=== PATIENT | male | born 1990 | race Asian ===

== ENCOUNTER 2021-10-17 15:11 | Emergency (ER) | payer SELFPAY ==
[~2021-10-17] VITALS: Ht 177.8 cm; Wt 99.8 kg
--- NOTE | 2021-10-17 15:46 | NUR ---
BIBS FOR C/O SORE THROAT, BILAT EAR ACHE AND HEADACHE X 3-4 DAYS. [employer]. IN ROOM AIR AND DENIES SOB. RESPIRATION REGULAR AND UNLABORED. WILL CONTINUE TO MONITOR THE PATIENT.
--- NOTE | 2021-10-17 16:43 | NUR ---
COVID ANTIGEN, INFLUENZA AND STREP THROAT SWABS DONE AND SENT TO THE LAB
[2021-10-17] MEDS ORDERED: AMOX500C2 PO (17:26)
[2021-10-17 17:37] VITALS: BP 123/84
--- NOTE | 2021-10-17 17:37 | NUR ---
Patient discharged to home in stable condition. Written and verbal after care instructions given. Patient verbalizes understanding of instruction.
== END 2021-10-17 17:38 | disposition home or self-care (01) ==
LOC: ER 15:14
DX: H66.93 Otitis media, unspecified, bilateral (principal); J02.9 Acute pharyngitis, unspecified; Z20.822 Contact with and (suspected) exposure to COVID-19; R03.0 Elevated blood-pressure reading, without diagnosis of hypertension
CPT/HCPCS: 87070; 87426; 87804; 87880; 99283; C9803; 86403-TC

== ENCOUNTER 2022-01-24 21:19 | Emergency (ER) | payer MEDICAID, OTHER ==
[~2022-01-24] VITALS: Ht 177.8 cm; Wt 95.3 kg
[~2022-01-24 21:19] MED LIST: AMOX500C2 PO
--- NOTE | 2022-01-24 21:32 | NUR ---
PT BIBSELF C/O ON & OFF H/A, R EAR PAIN, AND BILAT TONSIL PAIN X4 DAYS. DENIES PAIN AT THIS TIME. PT A/OX4. TOLERATING R/A WELL WITH NO SOB.
[2022-01-24] MEDS ORDERED: AMOX500C2 PO (23:10)
--- NOTE | 2022-01-24 23:28 | NUR ---
Patient discharged to home in stable condition. RX Written and verbal after care instructions given. Patient verbalizes understanding of instruction. PT ambulatory with a steady gait.
[2022-01-24 23:29] VITALS: BP 131/78
== END 2022-01-24 23:29 | disposition home or self-care (01) ==
LOC: ER 21:34
DX: H66.91 Otitis media, unspecified, right ear (principal); J02.9 Acute pharyngitis, unspecified

== ENCOUNTER 2022-04-18 14:43 | Emergency (ER) | payer MEDICAID ==
[~2022-04-18] VITALS: Ht 175.3 cm; Wt 99.8 kg
--- NOTE | 2022-04-18 15:00 | NUR ---
BIBSELF C/O TOO TESTICULAR PAIN X 4 DAYS, NO TRAUMA. PLACED IN BED. VITALS CHECKED.
--- NOTE | 2022-04-18 15:45 | NUR ---
SEEN BY DR MONTAÑO AT BEDSIDE
[2022-04-18 16:27] LABS: BILIRUBIN,URINE NEGATIVE (NEGATIVE); COLOR,URINE YELLOW (YELLOW); LEUKOCYTE ESTERASE ,URINE NEGATIVE (NEGATIVE); NITRITE, URINE NEGATIVE (NEGATIVE); PROTEIN,URINE NEGATIVE (NEGATIVE); UGLUCOSE NEGATIVE (NEGATIVE); UROBILINOGEN,URINE 0.2 EU/dL (0.2)
--- NOTE | 2022-04-18 18:08 | NUR ---
Patient discharged to home in stable condition. Written and verbal after care instructions given. Patient verbalizes understanding of instruction.
[2022-04-18 18:09] VITALS: BP 110/70
== END 2022-04-18 18:10 | disposition home or self-care (01) ==
LOC: ER 14:52
DX: J02.9 Acute pharyngitis, unspecified (principal); N50.812 Left testicular pain; N50.811 Right testicular pain

== ENCOUNTER 2023-07-23 22:31 | Emergency (ER) | payer MEDICAID ==
[~2023-07-23] VITALS: Ht 177.8 cm; Wt 79.4 kg
[2023-07-23] MEDS ORDERED: KETOROLAC TROMETHAMINE INJ 30 MG/ML VIAL IM ONE (23:00)
[2023-07-23] MEDS ORDERED: KETOROLAC TROMETHAMINE INJ 30 MG/ML VIAL ONE (23:22)
[2023-07-24] MEDS ORDERED: DICL1KIT14 TP (00:17)
[2023-07-24] MEDS ORDERED: IBUP-1955 PO (00:17)
[2023-07-24 00:30] VITALS: BP 131/79; TEMP 98.2; O2SAT 98
== END 2023-07-24 00:40 | disposition home or self-care (01) ==
LOC: ER 22:35
DX: M79.602 Pain in left arm (principal); M79.601 Pain in right arm
CPT/HCPCS: 99285; 73200 ×2; 96372; J1885

== ENCOUNTER 2023-12-05 15:56 | Emergency (ER) | payer MEDICAID ==
[~2023-12-05] VITALS: Ht 177.8 cm; Wt 99.8 kg
[~2023-12-05 15:56] MED LIST changes: +DICL1KIT14 TP; +IBUP-1955 PO
[2023-12-05] MEDS ORDERED: ACETAMINOPHEN ES 500 MG TABLET PO ONE (17:30)
[2023-12-05] MEDS ORDERED: ACETAMINOPHEN ES 500 MG TABLET ONE (17:39)
[2023-12-05] MEDS ORDERED: OSEL75CA PO (20:38)
[2023-12-05] MEDS ORDERED: IBUP-1955 PO (20:38)
[2023-12-05] MEDS ORDERED: ACET-2605 PO (20:38)
[2023-12-05 21:05] LABS: APPEARANCE,URINE CLEAR (CLEAR); BILIRUBIN,URINE NEGATIVE (NEGATIVE); BLOOD, URINE TRACE-INTA Ery/uL (NEGATIVE); COLOR,URINE YELLOW (YELLOW); KETONES,URINE NEGATIVE (NEGATIVE); LEUKOCYTE ESTERASE ,URINE NEGATIVE (NEGATIVE); NITRITE, URINE NEGATIVE (NEGATIVE); PROTEIN,URINE NEGATIVE (NEGATIVE); UGLUCOSE NEGATIVE (NEGATIVE); UROBILINOGEN,URINE 0.2 EU/dL (0.2)
[2023-12-05 21:46] LABS: ADD URINE CULTURE NO; BACTERIA,URINE 0 /HPF (None Seen); SQUAMOUS EPITHELIAL CELL,UR None Seen /HPF (None Seen); WBC,URINE 0-2 /HPF (0-3)
[2023-12-06 04:35] VITALS: BP 128/68; TEMP 98; O2SAT 100
== END 2023-12-06 04:36 | disposition home or self-care (01) ==
LOC: ER 16:02
DX: N43.3 Hydrocele, unspecified (principal); N50.3 Cyst of epididymis; J10.1 Influenza due to other identified influenza virus with other respiratory manifestations; Z20.822 Contact with and (suspected) exposure to COVID-19
CPT/HCPCS: 76870-TC; 81001; 86403-TC

== ENCOUNTER 2024-07-06 01:00 | Emergency (ER) | payer MEDICAID ==
[~2024-07-06] VITALS: Ht 177.8 cm; Wt 113.4 kg
[~2024-07-06 01:00] MED LIST changes: +ACET-2605 PO; +OSEL75CA PO
[2024-07-06] MEDS ORDERED: KETOROLAC TROMETHAMINE INJ 30 MG/ML VIAL ONE (03:34)
[2024-07-06] MEDS: KETOROLAC TROMETHAMINE INJ 60 MG/2 ML VIAL IM ONE (04:02)
[2024-07-06] MEDS ORDERED: GABA-532 PO (04:27)
--- NOTE | 2024-07-06 04:31 | NUR ---
Patient discharged to home in stable condition. Written and verbal after care instructions given. Patient verbalizes understanding of instruction.
[2024-07-06 04:32] VITALS: BP 128/89; TEMP 99.2; O2SAT 100
== END 2024-07-06 04:32 | disposition home or self-care (01) ==
LOC: ER 01:07
DX: M50.31 Other cervical disc degeneration, high cervical region (principal); M25.511 Pain in right shoulder
CPT/HCPCS: 99285; 72125; 96372; 73030; J1885

== ENCOUNTER 2025-02-21 20:37 | Emergency (ER) | payer MEDICAID ==
[~2025-02-21] VITALS: Ht 177.8 cm; Wt 104.3 kg
[~2025-02-21 20:37] MED LIST changes: +GABA-532 PO
[2025-02-21] MEDS ORDERED: HYDR-4182 TP (22:00)
[2025-02-21] MEDS ORDERED: FLUT16SP16 BNOSTRILS (22:00)
[2025-02-21] MEDS ORDERED: CETI-108 PO (22:00)
[2025-02-21 22:11] VITALS: BP 120/78; TEMP 98.8; O2SAT 100
== END 2025-02-21 22:12 | disposition home or self-care (01) ==
LOC: ER 20:40
DX: J30.2 Other seasonal allergic rhinitis (principal); L29.9 Pruritus, unspecified; H92.02 Otalgia, left ear; R09.81 Nasal congestion; F17.200 Nicotine dependence, unspecified, uncomplicated; Z79.899 Other long term (current) drug therapy